=== PATIENT | female | born 2000 | race African-American/Black ===

== ENCOUNTER 2019-01-19 20:15 | Emergency (ER) | payer OTHER ==
[2019-01-19 20:31] VITALS: BP 132/75; PULSE 86; TEMP 97.8; BMI 31.9
--- NOTE | 2019-01-19 23:18 | PDOC ---
Documentation entered by Bushra Byrne SCRIBE, acting as scribe for Arline Bowen MD. Arline Bowen MD: This documentation has been prepared by the scribe, Bushra Byrne SCRIBE, under my direction and personally reviewed by me in its entirety. I confirm that the documentation accurately reflects all work, treatment, procedures, and medical decision making performed by me. History of Present Illness - General Chief Complaint: Injury Stated Complaint: RT HAND INJURY History Source: Patient Exam Limitations: No Limitations - History of Present Illness Initial Comments: 01/19/19 20:52 The patient is a 18-year-old female, with a past medical history of anemia ( takes iron only when on her menses), who presents to the ED with swelling and tenderness to the RT 2nd, 3rd, and 4th digits. Patient sustained this injury while at work yesterday. She reports that a tube of metal coins dropped onto her RT hand. She is unable to bend her fingers due to pain. The patient is right -handed. The patient denies having any other injuries or symptoms. Allergies: NKA Past History - Past Medical History Allergies/Adverse Reactions: Allergies Allergy/AdvReac Type Severity Reaction Status Date / Time No Known Allergies Allergy Verified 01/19/19 20:16 Home Medications: Ambulatory Orders NK [No Known Home Medication] 01/19/19 Review of Systems - Review of Systems Able to Perform ROS?: Yes Comments:: 01/19/19 20:54 GENERAL/CONSTITUTIONAL: No fever or chills. No weakness. HEAD, EYES, EARS, NOSE AND THROAT: No change in vision. No ear pain or discharge. No sore throat. CARDIOVASCULAR: No chest pain or shortness of breath. RESPIRATORY: No cough, wheezing, or hemoptysis. GASTROINTESTINAL: No nausea, vomiting, diarrhea or constipation. GENITOURINARY: No dysuria, frequency, or change in urination. MUSCULOSKELETAL: (+)Swelling and tenderness to RT 2nd, 3rd, and 4th digits. No joint swelling or pain. No neck or back pain. SKIN: No rash NEUROLOGIC: No headache, vertigo, loss of consciousness, or change in strength/ sensation. ENDOCRINE: No increased thirst. No abnormal weight change. HEMATOLOGIC/LYMPHATIC: No anemia, easy bleeding, or history of blood clots. ALLERGIC/IMMUNOLOGIC: No hives or skin allergy. *Physical Exam - Vital Signs Last Vital Signs Temp Pulse Resp BP Pulse Ox 97.8 F 86 18 132/75 100 01/19/19 20:15 01/19/19 20:15 01/19/19 20:15 01/19/19 20:15 01/19/19 20:15 - Physical Exam Comments: 01/19/19 20:55 GENERAL: Awake, alert, and fully oriented, in no acute distress EXTREMITIES: (+)Moderate edema and tenderness of the middle phalanx of the 3rd finger without deformity, pain exacerbated with flexion and extension of the finger. (+)Mild edema and tenderness without deformity of the middle phalanx of the index and ring finger. No obvious joint edema or tenderness of any fingers. No nail damage. Remainder of the hand and wrist exam is unremarkable. No clubbing or cyanosis. No cords. NEUROLOGICAL: Neurovascular intact. Cranial nerves II through XII grossly intact. Normal speech. SKIN: Warm, Dry, normal turgor, no rashes or lesions noted. ED Treatment Course - ADDITIONAL ORDERS Additional order review: Laboratory Results 01/19/19 20:50 Urine HCG, Qual Negative - RADIOLOGY Radiology Studies Ordered: Category Date Time Status HAND- RIGHT [RAD] Stat Radiology 01/19/19 21:11 Taken Progress Note - Progress Note Progress Note: As noted above, this 18-year-old woman with a history of iron deficiency anemia but no other significant medical issues presents with an injury to her right hand or this was sustained yesterday at work when a heavy bag of coins fell on the palmar side of her outstretched right hand. She describes impact of the back on the palmar side of the second, third and fourth fingers. No other injury sustained and patient has no previous injury of the right hand. Exam as noted with tenderness of the middle phalanx of the fingers, especially the third finger. PGU negative Right hand x-ray performed: Preliminary interpretation by me-no evidence of fracture or dislocation noted. Clinical presentation most consistent with contusion of the right second/third/ fourth fingers. Since patient's maximum amount of tenderness is located in the third finger, splint applied to this finger and it was shyanne taped to the second finger. She should continue ice application to the area for the next day. Work documentation for modified duty given to the patient. She will be referred to orthopedic hand surgery ([facility]) for reevaluation within the next few days. *DC/Admit/Observation/Transfer Diagnosis at time of Disposition: Contusion of hand including fingers Qualifiers: Encounter type: initial encounter Laterality: right Qualified Code(s): S60.221A - Contusion of right hand, initial encounter; S60.00XA - Contusion of unspecified finger without damage to nail, initial encounter - Discharge Dispostion Disposition: HOME Condition at time of disposition: Stable - Referrals Referrals: Tripp Hinkle MD [Staff Physician] [place] [facility] [facility] [place]] - Patient Instructions Printed Discharge Instructions: DI for Contusion Additional Instructions: Keep splint and shyanne taping in place until seen by hand surgery Continue to elevate and apply ice to painful fingers for the next 24 hours Modified duty at work until seen by hand surgery Follow-up with orthopedic hand surgery (Kaylin Hinkle/Dr Abbott) within the next 2 to 3 days; call office tomorrow to arrange appointment Follow-up with Internal Medicine group at [facility] within the next week Return to ER if you have worsening pain/swelling of right hand - Post Discharge Activity
== END 2019-01-19 21:52 | disposition home or self-care (01) ==
LOC: FER 20:15
DX: S60.221A Contusion of right hand, initial encounter (principal)
CPT/HCPCS: 73130-TC-RT-FY; 84703; 99282-25